=== PATIENT | female | born 1975 | race Caucasian/White ===

== ENCOUNTER 2024-04-28 09:38 | Outpatient (CLI) | payer OTHER, SELFPAY ==
--- NOTE | ~2024-04-28 | CT_ITS ---
CLINICAL INDICATION: Hematuria. COMPARISON: None. TECHNIQUE: A CT examination of the abdomen and pelvis was performed utilizing multislice spiral techn ique reconstructed at 2.5 mm slice thickness. Coronal and sagittal reconstructions were performed. This CT examination was performed both prior to and following the administration of intravenous contr ast. This CT examination was performed using one or more of the following dose reduction techniques: Autom ated exposure control, adjustment of the mA and/or kV according to patient's size, and the use of ite rative reconstruction technique. DLP: 749 mGy-cm FINDINGS/OBSERVATIONS: Visualized lower thorax:The bilateral lung bases are clear. The heart is of normal size, without pericardial effusion. Small hiatal hernia is present. Liver: The liver is unremarkable in echogenicity and size measuring 16 cm in longitudinal dimension. Gallbladder and biliary system: The gallbladder is surgically absent. Pancreas: The pancreas enhances homogeneously without ductal dilatation. Spleen: Spleen is unremarkable in echogenicity and size Kidneys: Bilateral kidneys enhance symmetrically. Decreased attenuation within the cortex of the interpolar region of the left kidney, which does not d emonstrate contrast enhancement and is most consistent with a cyst. Ultrasound may be performed for c onfirmation. No hydronephrosis or renal calculi. Adrenal glands: Unremarkable Gastrointestinal tract: Unremarkable Appendix:The air-filled appendix is of normal caliber (series 3, image 129). Vasculature: Densely calcified atherosclerosis within the abdominal aorta and surrounding vasculature . This is more than one might expect for a patient of this age. No aneurysmal dilatation or stenosis. Prominence of the left gonadal vein is identified, a nonspecific finding in the absence of pelvic barbara ices. Lymph nodes: No pathologically enlarged or morphologically suspicious lymph nodes within the retroper itoneum or at the root of the mesentery. Pelvic structures: The bladder is only minimally distended, and otherwise unremarkable. The bilateral ureters are opacified with contrast, without a filling defect. No filling defect within the patient's bladder. The uterus is anteverted and anteflexed, and also unremarkable. Body wall and musculoskeletal: Unremarkable. No significant degenerative disease within the lumbosacral spine No lytic or blastic lesions identified. IMPRESSION: No obstructive uropathy. No cross-sectional imaging finding to correspond to patient's history as the source of her hematuria. Reviewed, dictated and finalized at location A. IMPRESSION: No obstructive uropathy. No cross-sectional imaging finding to correspond to patient's history as the so urce of her hematuria.
== END 2024-04-28 09:39 | disposition home or self-care (01) ==
PROVIDERS: PCP Internal Medicine; Visit Provider Physician Assistant
DX: R31.29 Other microscopic hematuria (principal)
CPT/HCPCS: 74178; Q9967